=== PATIENT | male | born 1950 | race Caucasian/White ===

== ENCOUNTER 2019-10-30 17:51 | Inpatient (IN) | payer BC, MEDICARE, OTHER ==
[~2019-10-30] VITALS: Ht 170.2 cm; Wt 56.5 kg
[2019-10-30 18:39] LABS: Hemoglobin 15.6 g/dL (13.5-17.5); Mean Corpuscular Hemoglobin 33.4 pg (28.0-32.0); Mean Corpuscular Hgb Conc. 33.9 g/dL (32.0-36.0); Mean Corpuscular Volume 98.3 fL (80.0-100.0); Platelet Count (auto) 425 10^3/uL (140-450); Red Blood Cells 4.68 10^6/uL (4.5-5.90); Red Cell Distribution Width 13.4 % (11.8-14.3); White Blood Cell 7.2 10^3/uL (4.4-10.8)
[2019-10-30 18:46] LABS: Basophils % (manual) 0 (0.0-2.0); Blast Cells 0; Eosinophils % (manual) 0 (0-7); Metamyelocytes % 0; Myelocytes % 0; Promyelocytes % 0; Reactive Lymphocytes 0
[2019-10-30 18:54] LABS: INR 1.13 (0.9-1.15); Partial Thromboplastin Time 25.7 sec (23.0-31.2)
[2019-10-30 18:56] LABS: Alanine Aminotransferase 12 U/L (16-61); Albumin 2.9 g/dL (3.4-5.0); Amylase 16 U/L (25-115); Anion Gap 13 (5-15); Aspartate Aminotransferase 18 U/L (15-37); Blood Urea Nitrogen 39 mg/dL (7-18); Calcium 9.3 mg/dL (8.5-10.1); Carbon Dioxide 26 mmol/L (21-32); Chloride 91 mmol/L (98-107); GFR African American 46 mL/min; GFR Non-African American 38 mL/min; Glucose 146 mg/dL (74-106); Lipase 29 U/L (73-393); Magnesium 1.9 mg/dL (1.6-2.6); Potassium 3.2 mmol/L (3.5-5.1); Sodium 130 mmol/L (136-145)
[2019-10-30] MEDS ORDERED: PANTOPRAZOLE 40 MG/10 ML VIAL INJ IV STA (19:00)
[2019-10-30] MEDS ORDERED: HYDROmorphone HCL 2 MG/ML VL IV ONE (19:00)
[2019-10-30] MEDS ORDERED: metroNIDAZOLE 500MG/100ML 100 ML IV ONE (19:00)
[2019-10-30] MEDS ORDERED: cefTRIAXone 1GM/50ML D5W 50 ML IV ONE (19:00)
[2019-10-30] MEDS ORDERED: SODIUM CHLORIDE 0.9% 1,000 ML IVB ONE (19:00)
[2019-10-30] MEDS ORDERED: SODIUM CHLORIDE 0.9% 1,000 ML IV ONE (19:00)
[2019-10-30] MEDS ORDERED: PROMETHAZINE HCL 25 MG/ML 1ML IV PRN (19:00)
[2019-10-30 19:01] LABS: Alkaline Phosphatase 79 U/L (45-117); Bilirubin, Total 0.9 mg/dL (0.2-1.0); Lactic Acid w/Reflex 8.1 mmol/L (0.4-2.0); Total Protein 6.8 g/dL (6.4-8.2)
[2019-10-30] MEDS ORDERED: IOHEXOL 300 MG/ML 100ML BOTTLE IJ ONE (19:19)
[2019-10-30 20:08] LABS: Band Neutrophils % (manual) 43; Lymphocytes % (manual) 3 (10.0-50.0); Monocytes % (manual) 6 (0-12)
[2019-10-30] MEDS ORDERED: NITROGLYCERIN 0.4 MG SL TAB SL PRN (21:30)
[2019-10-30] MEDS ORDERED: MORPHINE SULFATE 4 MG/ML SYR/VIAL IV PRN (21:30)
[2019-10-30] MEDS ORDERED: SODIUM CHLORIDE 0.9% 1,000 ML IV SCH (21:30)
[2019-10-30] MEDS ORDERED: ONDANSETRON HCL 4 MG/2 ML VIAL IV PRN (21:30)
[2019-10-30] MEDS ORDERED: POTASSIUM CHL 20MEQ/100ML 100 ML IV ONE (21:30)
[2019-10-30] MEDS ORDERED: D5W/SOD CHL 0.45%/KCL 40MEQ 1,000 ML IV ONE (22:00)
[2019-10-30] MEDS ORDERED: ALBUMIN 5% 250 ML IV ONE (22:15)
[2019-10-30 22:18] LABS: Urine Bacteria FEW /hpf (None Seen); Urine Blood Negative /uL (Negative); Urine Hyaline Cast FEW /lpf (0 - 2); Urine Mucus FEW (None Seen); Urine Specific Gravity 1.025 (1.001-1.035); Urine WBC 3 /hpf (0 - 3)
[2019-10-31] VITALS (38 sets, daily range): BP systolic 87–211; BP diastolic 47–188
[2019-10-31] MEDS: metroNIDAZOLE 500MG/100ML 100 ML IV SCH ×4 (00:29→22:51)
[2019-10-31] MEDS: PIPERACILLIN-TAZOB 3.375GM 100 ML IV SCH ×3 (02:06→18:00)
[2019-10-31] MEDS ORDERED: POVIDONE IODINE 10 % TOPICAL OINT 30GM TOP ONE (08:12)
[2019-10-31] MEDS ORDERED: HYDROmorphone HCL 2 MG/ML VL ONE ×2 (08:51→10:09)
[2019-10-31] MEDS ORDERED: fentaNYL CITRATE 5 ML ONE ×2 (08:51→10:20)
[2019-10-31] MEDS ORDERED: fentaNYL CITRATE 100 MCG/2 ML VL ONE (08:51)
[2019-10-31] MEDS ORDERED: MIDAZOLAM HCL 1MG/1ML-2 ML VIAL ONE ×3 (08:52→10:49)
[2019-10-31] MEDS ORDERED: SUCCINYLCHOLINE CHLORIDE 20 MG/ML 10ML VIAL IV ONE (08:56)
[2019-10-31] MEDS ORDERED: ETOMIDATE (2MG/ML) 20ML VIAL IV ONE (08:58)
[2019-10-31] MEDS ORDERED: PHENYLEPHRINE HCL 10 MG/ML VL IV ONE (08:58)
[2019-10-31] MEDS ORDERED: PANTOPRAZOLE 40 MG/10 ML VIAL INJ IV SCH (10:00)
[2019-10-31] MEDS ORDERED: CALCIUM CHLOR(10%) 100MG/ML 10ML SYRINGE IV ONE (10:44)
[2019-10-31] MEDS ORDERED: ONDANSETRON HCL 4 MG/2 ML VIAL IV PRN (11:30)
[2019-10-31] MEDS ORDERED: MIDAZOLAM HCL 1MG/1ML-2 ML VIAL IV PRN (11:30)
[2019-10-31] MEDS ORDERED: HYDROmorphone HCL 2 MG/ML VL IV PRN ×2 (11:30→12:45)
[2019-10-31] MEDS ORDERED: POTASSIUM CHL 20MEQ/100ML 0 ML IV ONE (11:30)
[2019-10-31] MEDS ORDERED: LABETALOL HCL 5 MG/ML 4ML SYRINGE IV PRN (11:30)
[2019-10-31] MEDS ORDERED: ePHEDrine SULFATE 50 MG/ML AMP IV PRN (11:30)
[2019-10-31] MEDS ORDERED: MORPHINE SULFATE 4 MG/ML SYR/VIAL IV PRN (11:30)
[2019-10-31] MEDS ORDERED: ROCURONIUM 10MG/ML 10ML VIAL IV ONE (12:10)
[2019-10-31] MEDS ORDERED: NOREPINEPHRINE 8 MG/250ML KIT 250 ML IV ONE (12:24)
[2019-10-31] MEDS ORDERED: ALBUMIN 25% 50 ML IV ONE ×2 (12:45→12:48)
[2019-10-31] MEDS ORDERED: MIDAZOLAM DRIP 50 mg/50mL 50 ML IV ONE (12:49)
[2019-10-31] MEDS: NOREPINEPHRINE 8 MG/250ML KIT 250 ML IV SCH (13:54)
[2019-10-31] MEDS ORDERED: MIDAZOLAM DRIP 50 mg/50mL 50 ML IV SCH (13:54)
[2019-10-31] MEDS ORDERED: POTASSIUM CHL 20MEQ/100ML 100 ML IV ONE (14:00)
[2019-10-31] MEDS ORDERED: SODIUM BICARBONATE 8.4 % INJ 50ML VIAL IV ONE (15:00)
[2019-10-31 15:50] LABS: Hematocrit 42.1 % (41.0-53.0); Hemoglobin 14.1 g/dL (13.5-17.5); Mean Corpuscular Hemoglobin 33.5 pg (28.0-32.0); Mean Corpuscular Hgb Conc. 33.6 g/dL (32.0-36.0); Mean Corpuscular Volume 99.5 fL (80.0-100.0); Platelet Count (auto) 303 10^3/uL (140-450); Red Blood Cells 4.23 10^6/uL (4.5-5.90); Red Cell Distribution Width 13.9 % (11.8-14.3); White Blood Cell 8.8 10^3/uL (4.4-10.8)
[2019-10-31 15:55] LABS: Basophils % (manual) 0 (0.0-2.0); Blast Cells 0; Eosinophils % (manual) 0 (0-7); Promyelocytes % 0; Reactive Lymphocytes 0
[2019-10-31 16:10] LABS: Albumin 2.1 g/dL (3.4-5.0); Calcium 7.7 mg/dL (8.5-10.1); Magnesium 1.8 mg/dL (1.6-2.6); Phosphorus 2.6 mg/dL (2.5-4.90); Potassium 3.9 mmol/L (3.5-5.1)
[2019-10-31 16:11] LABS: Band Neutrophils % (manual) 37; Lymphocytes % (manual) 6 (10.0-50.0); Metamyelocytes % 5; Monocytes % (manual) 10 (0-12); Myelocytes % 2
[2019-10-31 16:14] LABS: BUN/Creatinine Ratio 36.4; Bilirubin, Total 0.4 mg/dL (0.2-1.0); Total Protein 4.1 g/dL (6.4-8.2)
[2019-10-31] MEDS: D5W/SOD CHLO 0.9% 1,000 ML IV SCH ×2 (17:03→23:00)
[2019-10-31] MEDS: IPRATROPIUM BROM 0.5 MG/2.5ML INH SOL NEB SCH (18:09)
[2019-10-31] MEDS: ACETYLCYSTEINE 10 %(100MG/ML) SOL 4ML NEB SCH (18:09)
[2019-10-31] MEDS: ALBUTEROL SULF 2.5 MG/0.5ML(0.5%) NEB SOLN NEB SCH (18:09)
[2019-10-31] MEDS: fentaNYL Drip 2500mCg/250mlNS 250 ML IV SCH (20:00)
[2019-11-01] VITALS (68 sets, daily range): BP systolic 70–175; BP diastolic 46–170
[2019-11-01] MEDS: IPRATROPIUM BROM 0.5 MG/2.5ML INH SOL NEB SCH ×4 (00:14→18:08)
[2019-11-01] MEDS: ALBUTEROL SULF 2.5 MG/0.5ML(0.5%) NEB SOLN NEB SCH ×4 (00:14→18:07)
[2019-11-01] MEDS: ACETYLCYSTEINE 10 %(100MG/ML) SOL 4ML NEB SCH ×4 (00:14→18:07)
[2019-11-01] MEDS: PIPERACILLIN-TAZOB 3.375GM 100 ML IV SCH ×4 (00:25→18:00)
[2019-11-01 04:42] LABS: Hematocrit 47.9 % (41.0-53.0); Hemoglobin 15.4 g/dL (13.5-17.5); Mean Corpuscular Hemoglobin 32.6 pg (28.0-32.0); Mean Corpuscular Hgb Conc. 32.1 g/dL (32.0-36.0); Mean Corpuscular Volume 101.5 fL (80.0-100.0); Platelet Count (auto) 275 10^3/uL (140-450); Red Blood Cells 4.71 10^6/uL (4.5-5.90); Red Cell Distribution Width 14.2 % (11.8-14.3); White Blood Cell 19.7 10^3/uL (4.4-10.8)
[2019-11-01] MEDS: MORPHINE SULF INJ 2 MG/ML SYRINGE 1ML IV PRN ×2 (04:59→21:19)
[2019-11-01 05:03] LABS: Potassium 4.4 mmol/L (3.5-5.1)
[2019-11-01] MEDS: D5W/SOD CHLO 0.9% 1,000 ML IV SCH (05:04)
[2019-11-01 05:12] LABS: Albumin 1.8 g/dL (3.4-5.0); BUN/Creatinine Ratio 30.6; Bilirubin, Total 0.5 mg/dL (0.2-1.0); Calcium 7.4 mg/dL (8.5-10.1); Total Protein 4.4 g/dL (6.4-8.2)
[2019-11-01 05:15] LABS: Basophils % (manual) 0 (0.0-2.0); Blast Cells 0; Eosinophils % (manual) 0 (0-7); Promyelocytes % 0; Reactive Lymphocytes 0
[2019-11-01] MEDS: metroNIDAZOLE 500MG/100ML 100 ML IV SCH ×3 (06:00→22:09)
[2019-11-01 06:19] LABS: Lymphocytes % (manual) 2 (10.0-50.0)
[2019-11-01 06:21] LABS: Band Neutrophils % (manual) 73; Metamyelocytes % 2; Monocytes % (manual) 5 (0-12); Myelocytes % 1
[2019-11-01] MEDS: PANTOPRAZOLE 40 MG/10 ML VIAL INJ IV SCH (10:47)
[2019-11-01] MEDS: fentaNYL Drip 2500mCg/250mlNS 250 ML IV SCH (13:46)
[2019-11-01] MEDS: NOREPINEPHRINE 8 MG/250ML KIT 250 ML IV SCH (13:54)
[2019-11-01] MEDS ORDERED: LORazepam 2MG/ML-1ML VIAL ONE (18:39)
[2019-11-01] MEDS ORDERED: LORazepam 2MG/ML-1ML VIAL IV ONE (18:45)
[2019-11-02] VITALS (24 sets, daily range): BP systolic 111–168; BP diastolic 60–117
[2019-11-02] MEDS: IPRATROPIUM BROM 0.5 MG/2.5ML INH SOL NEB SCH ×6 (00:10→21:53)
[2019-11-02] MEDS: ACETYLCYSTEINE 10 %(100MG/ML) SOL 4ML NEB SCH ×6 (00:10→21:53)
[2019-11-02] MEDS: ALBUTEROL SULF 2.5 MG/0.5ML(0.5%) NEB SOLN NEB SCH ×2 (00:10→06:16)
[2019-11-02] MEDS: PIPERACILLIN-TAZOB 3.375GM 100 ML IV SCH ×3 (01:02→11:59)
[2019-11-02] MEDS: D5W/SOD CHLO 0.9% 1,000 ML IV SCH (03:30)
[2019-11-02] MEDS: MORPHINE SULF INJ 2 MG/ML SYRINGE 1ML IV PRN ×3 (04:43→21:10)
[2019-11-02 04:57] LABS: Basophils # (auto) 0 10 ^3/uL (0-0.2); Eosinophils # (auto) 0 10 ^3/uL (0-0.8); Hematocrit 27.4 % (41.0-53.0); Hemoglobin 9.3 g/dL (13.5-17.5); Lymphocytes # (auto) 0.2 10 ^3/uL (0.4-5.4); Mean Corpuscular Hemoglobin 33.4 pg (28.0-32.0); Mean Corpuscular Hgb Conc. 33.8 g/dL (32.0-36.0); Mean Corpuscular Volume 98.8 fL (80.0-100.0); Monocytes # (auto) 0.5 10 ^3/uL (0-1.3); Monocytes % (auto) 2.9 % (0.0-12.0); Neutrophils # (auto) 15.8 10 ^3/uL (1.6-8.6); Neutrophils % (auto) 96.1 % (37.0-80.0); Platelet Count (auto) 156 10^3/uL (140-450); Red Blood Cells 2.78 10^6/uL (4.5-5.90); Red Cell Distribution Width 14.5 % (11.8-14.3); White Blood Cell 16.5 10^3/uL (4.4-10.8)
[2019-11-02] MEDS: metroNIDAZOLE 500MG/100ML 100 ML IV SCH ×3 (05:18→22:00)
[2019-11-02 05:23] LABS: Albumin 1.5 g/dL (3.4-5.0); BUN/Creatinine Ratio 34.3; Bilirubin, Total 0.3 mg/dL (0.2-1.0); Calcium 6.8 mg/dL (8.5-10.1); Total Protein 3.7 g/dL (6.4-8.2)
[2019-11-02 05:25] LABS: Potassium 2.7 mmol/L (3.5-5.1)
[2019-11-02] MEDS ORDERED: POTASSIUM CHL 20MEQ/100ML 100 ML IV ONE ×2 (06:30→09:00)
[2019-11-02] MEDS: PANTOPRAZOLE 40 MG/10 ML VIAL INJ IV SCH (09:32)
[2019-11-02 10:35] LABS: Phosphorus 0.6 mg/dL (2.5-4.90)
[2019-11-02] MEDS ORDERED: POTASSIUM PHOSPHATE 44 MEQ in D5W 5% 250 ML IV ONE ×2 (10:45→16:15)
[2019-11-02] MEDS: LORazepam 2MG/ML-1ML VIAL IV PRN ×2 (11:09→20:12)
[2019-11-02] MEDS ORDERED: LEVALBUTEROL HCL 1.25 MG/3 ML NEB NEB SCH (12:00)
[2019-11-02] MEDS ORDERED: FUROSEMIDE 40 MG/4 ML VIAL ONE (12:41)
[2019-11-02] MEDS ORDERED: FUROSEMIDE 40 MG/4 ML VIAL IV ONE (12:45)
[2019-11-02] MEDS ORDERED: IPRATROPIUM BROM 0.5 MG/2.5ML INH SOL NEB ONE (12:45)
[2019-11-02] MEDS ORDERED: BUDESONIDE (INHALATION) 0.5 MG/2 ML NEB NEB ONE (12:45)
[2019-11-02] MEDS ORDERED: TPN PER PHARMACY 0 ML IV SCH (13:00)
[2019-11-02] MEDS ORDERED: MORPHINE SULF INJ 2 MG/ML SYRINGE 1ML IV ONE (13:45)
[2019-11-02] MEDS ORDERED: methylPREDNISolone SOD SUCC 125 MG/2 ML VL ONE (14:00)
[2019-11-02] MEDS ORDERED: methylPREDNISolone SOD SUCC 125 MG/2 ML VL IV ONE (14:00)
[2019-11-02] MEDS: LEVALBUTEROL HCL 1.25 MG/3 ML NEB NEB SCH ×2 (14:18→21:53)
[2019-11-02 14:49] LABS: Pre Albumin 3.6 mg/dL (20.0-40.0)
[2019-11-02] MEDS ORDERED: FOLIC ACID 1 MG in D5W 5% 50 ML IV ONE (15:00)
[2019-11-02] MEDS ORDERED: LABETALOL HCL 5 MG/ML 4ML SYRINGE IV PRN ×2 (15:00)
[2019-11-02] MEDS ORDERED: THIAMINE 100mg/ml INJ (200mg/2ml VIAL) IV ONE (15:00)
[2019-11-02] MEDS ORDERED: cloNIDine 0.2 mg/24hr 7DAY PATCH TD SCH (15:00)
[2019-11-02 15:37] LABS: INR 1.18 (0.9-1.15)
[2019-11-02] MEDS: HALOPERIDOL LACTATE 5 MG/ML INJ VIAL IM PRN ×2 (15:58→23:28)
[2019-11-02 16:03] LABS: Phosphorus 1.1 mg/dL (2.5-4.90)
[2019-11-02 16:08] LABS: Potassium 2.7 mmol/L (3.5-5.1)
[2019-11-02] MEDS: BUDESONIDE (INHALATION) 0.5 MG/2 ML NEB NEB SCH (18:18)
[2019-11-02] MEDS ORDERED: PPN PER PHARMACY IV NR ×10 (20:00)
[2019-11-02] MEDS ORDERED: POTASSIUM PHOSPHATE 22 MEQ in SODIUM CHL 0.9% 100 ML IV ONE (22:00)
[2019-11-02] MEDS ORDERED: FUROSEMIDE 20 MG/2 ML VIAL IV ONE (23:30)
[2019-11-03] VITALS (13 sets, daily range): BP systolic 119–161; BP diastolic 69–108
[2019-11-03] MEDS: IPRATROPIUM BROM 0.5 MG/2.5ML INH SOL NEB SCH ×6 (02:11→22:21)
[2019-11-03] MEDS: ACETYLCYSTEINE 10 %(100MG/ML) SOL 4ML NEB SCH ×6 (02:11→22:21)
[2019-11-03] MEDS: HYDROmorphone HCL 2 MG/ML VL IV PRN ×2 (03:17→21:11)
[2019-11-03 05:19] LABS: Basophils # (auto) 0 10 ^3/uL (0-0.2); Basophils % (auto) 0.3 % (0.0-2.0); Eosinophils # (auto) 0 10 ^3/uL (0-0.8); Hematocrit 33.5 % (41.0-53.0); Hemoglobin 11.3 g/dL (13.5-17.5); Lymphocytes # (auto) 0.2 10 ^3/uL (0.4-5.4); Lymphocytes % (auto) 1.1 % (10.0-50.0); Mean Corpuscular Hemoglobin 33.3 pg (28.0-32.0); Mean Corpuscular Hgb Conc. 33.9 g/dL (32.0-36.0); Mean Corpuscular Volume 98.3 fL (80.0-100.0); Monocytes # (auto) 0.6 10 ^3/uL (0-1.3); Monocytes % (auto) 3.4 % (0.0-12.0); Neutrophils # (auto) 18.1 10 ^3/uL (1.6-8.6); Neutrophils % (auto) 95.2 % (37.0-80.0); Platelet Count (auto) 147 10^3/uL (140-450); Red Blood Cells 3.41 10^6/uL (4.5-5.90); Red Cell Distribution Width 14.3 % (11.8-14.3)
[2019-11-03 05:42] LABS: Albumin 2.2 g/dL (3.4-5.0); BUN/Creatinine Ratio 23.8; Bilirubin, Total 0.4 mg/dL (0.2-1.0); Calcium 7.4 mg/dL (8.5-10.1); Magnesium 1.9 mg/dL (1.6-2.6); Phosphorus 2.6 mg/dL (2.5-4.90); Total Protein 4.9 g/dL (6.4-8.2)
[2019-11-03 05:49] LABS: Potassium 2.7 mmol/L (3.5-5.1)
[2019-11-03] MEDS: ACCU-CHEK COMFORT CURVE STRIP VI SCH ×4 (06:00→18:02)
[2019-11-03] MEDS: metroNIDAZOLE 500MG/100ML 100 ML IV SCH ×3 (06:00→21:10)
[2019-11-03] MEDS: InsuLIN REG 1unit/0.01ml Soln (100units/ml) SC SCH ×4 (06:17→18:00)
[2019-11-03] MEDS: BUDESONIDE (INHALATION) 0.5 MG/2 ML NEB NEB SCH ×2 (06:38→18:22)
[2019-11-03] MEDS: LEVALBUTEROL HCL 1.25 MG/3 ML NEB NEB SCH ×4 (06:39→22:21)
[2019-11-03] MEDS: POTASSIUM CHL 20MEQ/100ML 100 ML IV SCH ×4 (06:59→11:58)
[2019-11-03] MEDS ORDERED: cefTRIAXone 1GM/50ML D5W 50 ML IV SCH (09:00)
[2019-11-03] MEDS: HALOPERIDOL LACTATE 5 MG/ML INJ VIAL IM PRN (09:06)
[2019-11-03] MEDS ORDERED: VANCOMYCIN PER PHARMACY 0 MG IV SCH (09:45)
[2019-11-03] MEDS: THIAMINE 100mg/ml INJ (200mg/2ml VIAL) IV SCH (10:00)
[2019-11-03] MEDS: FOLIC ACID 1 MG in D5W 5% 50 ML IV SCH (10:25)
[2019-11-03] MEDS: LORazepam 2MG/ML-1ML VIAL IV PRN (10:26)
[2019-11-03] MEDS ORDERED: chlordiazePOXIDE HCL 5 MG CAP PO PRN (10:30)
[2019-11-03] MEDS ORDERED: TPN PER PHARMACY 0 ML IV SCH (10:30)
[2019-11-03] MEDS: PANTOPRAZOLE 40 MG/10 ML VIAL INJ IV SCH (10:49)
[2019-11-03] MEDS: VANCOMYCIN 1GM/250ML 250 ML IV SCH (10:49)
[2019-11-03] MEDS: PIPERACILLIN-TAZOB 3.375GM 100 ML IV SCH ×2 (12:00→18:04)
[2019-11-03] MEDS ORDERED: LORazepam 2MG/ML-1ML VIAL IV ONE (12:15)
[2019-11-03] MEDS ORDERED: FLUCONAZOLE 200MG/100ML 100 ML IV ONE (13:00)
[2019-11-03] MEDS ORDERED: LIDOCAINE 1% (LOCAL ANESTH.) PF 5ml SDV ID ONE (14:30)
[2019-11-03] MEDS: NYSTATIN (MOUTH-THROAT) 500,000 UNITS/5 ML SUSP MT SCH ×2 (18:02→21:10)
[2019-11-03] MEDS ORDERED: PPN PER PHARMACY IV NR ×11 (20:00)
[2019-11-03] MEDS: SODIUM CHLOR 0.9% PF (SALINE LOCK) 10ML VIAL/SYR IV SCH (21:10)
[2019-11-03] MEDS ORDERED: FUROSEMIDE 20 MG/2 ML VIAL IV ONE (23:30)
[2019-11-04 00:07] VITALS: BP 142/64
[2019-11-04] MEDS: PIPERACILLIN-TAZOB 3.375GM 100 ML IV SCH ×5 (00:22→23:45)
[2019-11-04] MEDS: IPRATROPIUM BROM 0.5 MG/2.5ML INH SOL NEB SCH ×6 (02:39→22:53)
[2019-11-04] MEDS: ACETYLCYSTEINE 10 %(100MG/ML) SOL 4ML NEB SCH ×6 (02:39→22:53)
[2019-11-04] MEDS: LORazepam 2MG/ML-1ML VIAL IV PRN ×3 (02:42→20:10)
[2019-11-04] MEDS: VANCOMYCIN 1GM/250ML 250 ML IV SCH ×2 (02:43→19:00)
[2019-11-04 05:00] VITALS: BP 142/69
[2019-11-04] MEDS: metroNIDAZOLE 500MG/100ML 100 ML IV SCH ×3 (05:37→22:38)
[2019-11-04] MEDS: NYSTATIN (MOUTH-THROAT) 500,000 UNITS/5 ML SUSP MT SCH ×4 (05:38→22:39)
[2019-11-04] MEDS: ACCU-CHEK COMFORT CURVE STRIP VI SCH ×5 (05:38→23:46)
[2019-11-04] MEDS: InsuLIN REG 1unit/0.01ml Soln (100units/ml) SC SCH ×5 (05:41→23:46)
[2019-11-04] MEDS: HALOPERIDOL LACTATE 5 MG/ML INJ VIAL IM PRN (06:09)
[2019-11-04 07:03] LABS: Calcium 7.3 mg/dL (8.5-10.1); Magnesium 1.8 mg/dL (1.6-2.6); Potassium 3.6 mmol/L (3.5-5.1)
[2019-11-04 07:07] LABS: BUN/Creatinine Ratio 24.7; Bilirubin, Total 0.4 mg/dL (0.2-1.0); Phosphorus 1.9 mg/dL (2.5-4.90); Total Protein 4.9 g/dL (6.4-8.2)
[2019-11-04] MEDS: HYDROmorphone HCL 2 MG/ML VL IV PRN ×3 (07:29→23:32)
[2019-11-04 07:39] LABS: Basophils # (auto) 0 10 ^3/uL (0-0.2); Basophils % (auto) 0.2 % (0.0-2.0); Eosinophils # (auto) 0 10 ^3/uL (0-0.8); Eosinophils % (auto) 0.1 % (0.0-7.0); Hematocrit 37.8 % (41.0-53.0); Hemoglobin 12.9 g/dL (13.5-17.5); Lymphocytes # (auto) 0.4 10 ^3/uL (0.4-5.4); Mean Corpuscular Hemoglobin 33.8 pg (28.0-32.0); Mean Corpuscular Hgb Conc. 34.2 g/dL (32.0-36.0); Monocytes # (auto) 0.9 10 ^3/uL (0-1.3); Monocytes % (auto) 4.3 % (0.0-12.0); Neutrophils # (auto) 19.8 10 ^3/uL (1.6-8.6); Neutrophils % (auto) 93.4 % (37.0-80.0); Platelet Count (auto) 118 10^3/uL (140-450); Red Blood Cells 3.82 10^6/uL (4.5-5.90); Red Cell Distribution Width 14.4 % (11.8-14.3); White Blood Cell 21.2 10^3/uL (4.4-10.8)
[2019-11-04 09:00] VITALS: BP 114/40
[2019-11-04] MEDS: BUDESONIDE (INHALATION) 0.5 MG/2 ML NEB NEB SCH ×2 (10:37→18:59)
[2019-11-04] MEDS ORDERED: POTASSIUM PHOSP 26.4MEQ(18MMOL) IN NS 100 ML IV ONE (10:45)
[2019-11-04] MEDS: THIAMINE 100mg/ml INJ (200mg/2ml VIAL) IV SCH (11:32)
[2019-11-04] MEDS: FLUCONAZOLE 200MG/100ML 100 ML IV SCH (11:33)
[2019-11-04] MEDS: PANTOPRAZOLE 40 MG/10 ML VIAL INJ IV SCH (11:33)
[2019-11-04] MEDS: FUROSEMIDE 20 MG/2 ML VIAL IV SCH (11:33)
[2019-11-04] MEDS: SODIUM CHLOR 0.9% PF (SALINE LOCK) 10ML VIAL/SYR IV SCH ×2 (11:34→21:05)
[2019-11-04] MEDS: FOLIC ACID 1 MG in D5W 5% 50 ML IV SCH (12:19)
[2019-11-04 13:00] VITALS: BP 143/70
[2019-11-04] MEDS: LEVALBUTEROL HCL 1.25 MG/3 ML NEB NEB SCH ×2 (14:26→22:53)
[2019-11-04 17:00] VITALS: BP 92/58
[2019-11-04] MEDS ORDERED: TPN PER PHARMACY IV NR ×10 (20:00)
[2019-11-04 22:00] VITALS: BP 134/86
[2019-11-05] VITALS (9 sets, daily range): BP systolic 86–138; BP diastolic 41–76
[2019-11-05] MEDS: ACETYLCYSTEINE 10 %(100MG/ML) SOL 4ML NEB SCH ×6 (02:03→22:53)
[2019-11-05] MEDS: IPRATROPIUM BROM 0.5 MG/2.5ML INH SOL NEB SCH ×6 (02:03→22:53)
[2019-11-05] MEDS: HYDROmorphone HCL 2 MG/ML VL IV PRN ×5 (04:15→21:48)
[2019-11-05] MEDS: metroNIDAZOLE 500MG/100ML 100 ML IV SCH ×3 (05:02→21:47)
[2019-11-05] MEDS: InsuLIN REG 1unit/0.01ml Soln (100units/ml) SC SCH ×3 (06:00→17:38)
[2019-11-05] MEDS: ACCU-CHEK COMFORT CURVE STRIP VI SCH ×3 (06:02→17:39)
[2019-11-05] MEDS: NYSTATIN (MOUTH-THROAT) 500,000 UNITS/5 ML SUSP MT SCH ×4 (06:31→21:48)
[2019-11-05] MEDS: PIPERACILLIN-TAZOB 3.375GM 100 ML IV SCH ×3 (06:31→18:33)
[2019-11-05] MEDS: LORazepam 2MG/ML-1ML VIAL IV PRN ×3 (06:32→17:38)
[2019-11-05] MEDS: LEVALBUTEROL HCL 1.25 MG/3 ML NEB NEB SCH ×3 (06:37→22:54)
[2019-11-05 07:21] LABS: Basophils # (auto) 0 10 ^3/uL (0-0.2); Basophils % (auto) 0.1 % (0.0-2.0); Eosinophils # (auto) 0.1 10 ^3/uL (0-0.8); Eosinophils % (auto) 0.8 % (0.0-7.0); Hematocrit 37.3 % (41.0-53.0); Hemoglobin 12.1 g/dL (13.5-17.5); Lymphocytes # (auto) 0.7 10 ^3/uL (0.4-5.4); Lymphocytes % (auto) 4.4 % (10.0-50.0); Mean Corpuscular Hemoglobin 32.2 pg (28.0-32.0); Mean Corpuscular Hgb Conc. 32.5 g/dL (32.0-36.0); Mean Corpuscular Volume 99.1 fL (80.0-100.0); Monocytes # (auto) 0.9 10 ^3/uL (0-1.3); Monocytes % (auto) 5.2 % (0.0-12.0); Neutrophils # (auto) 14.8 10 ^3/uL (1.6-8.6); Neutrophils % (auto) 89.5 % (37.0-80.0); Platelet Count (auto) 101 10^3/uL (140-450); Red Blood Cells 3.77 10^6/uL (4.5-5.90); Red Cell Distribution Width 14.3 % (11.8-14.3); White Blood Cell 16.6 10^3/uL (4.4-10.8)
[2019-11-05 07:39] LABS: Albumin 1.7 g/dL (3.4-5.0); Calcium 7.4 mg/dL (8.5-10.1); Magnesium 2.3 mg/dL (1.6-2.6); Potassium 3.8 mmol/L (3.5-5.1)
[2019-11-05 07:42] LABS: BUN/Creatinine Ratio 30.8; Bilirubin, Total 0.5 mg/dL (0.2-1.0); Phosphorus 2.7 mg/dL (2.5-4.90); Total Protein 4.6 g/dL (6.4-8.2)
[2019-11-05] MEDS: FLUCONAZOLE 200MG/100ML 100 ML IV SCH (09:29)
[2019-11-05] MEDS: THIAMINE 100mg/ml INJ (200mg/2ml VIAL) IV SCH (09:29)
[2019-11-05] MEDS: SODIUM CHLOR 0.9% PF (SALINE LOCK) 10ML VIAL/SYR IV SCH ×2 (09:30→20:28)
[2019-11-05] MEDS: PANTOPRAZOLE 40 MG/10 ML VIAL INJ IV SCH (09:30)
[2019-11-05] MEDS: BUDESONIDE (INHALATION) 0.5 MG/2 ML NEB NEB SCH ×2 (10:24→22:53)
[2019-11-05] MEDS: FOLIC ACID 1 MG in D5W 5% 50 ML IV SCH (11:33)
[2019-11-05] MEDS ORDERED: OMNIPAQUE ORAL SOLN 500ml 12mg/ml PO ONE (11:36)
[2019-11-05] MEDS: FUROSEMIDE 20 MG/2 ML VIAL IV SCH (11:43)
[2019-11-05] MEDS ORDERED: IOHEXOL 300 MG/ML 100ML BOTTLE IJ ONE (16:19)
[2019-11-05] MEDS ORDERED: VANCOMYCIN 1GM/250ML 250 ML IV SCH (17:00)
[2019-11-05] MEDS ORDERED: TPN PER PHARMACY IV NR ×11 (20:00)
[2019-11-05] MEDS ORDERED: NOREPINEPHRINE 8 MG/250ML KIT 250 ML IV ONE (23:12)
[2019-11-05] MEDS ORDERED: NOREPINEPHRINE 8 MG/250ML KIT 250 ML IV SCH (23:30)
[2019-11-06] VITALS (32 sets, daily range): BP systolic 80–125; BP diastolic 43–72
[2019-11-06] MEDS: HYDROmorphone HCL 2 MG/ML VL IV PRN (02:05)
[2019-11-06] MEDS: IPRATROPIUM BROM 0.5 MG/2.5ML INH SOL NEB SCH ×2 (02:10→07:06)
[2019-11-06] MEDS: ACETYLCYSTEINE 10 %(100MG/ML) SOL 4ML NEB SCH ×2 (02:10→07:06)
[2019-11-06] MEDS ORDERED: VANCOMYCIN 1GM/250ML 250 ML IV SCH (04:00)
[2019-11-06 04:15] LABS: Basophils # (auto) 0.1 10 ^3/uL (0-0.2); Basophils % (auto) 0.5 % (0.0-2.0); Eosinophils # (auto) 0.1 10 ^3/uL (0-0.8); Eosinophils % (auto) 0.7 % (0.0-7.0); Hematocrit 35.8 % (41.0-53.0); Hemoglobin 11.1 g/dL (13.5-17.5); Lymphocytes # (auto) 0.7 10 ^3/uL (0.4-5.4); Lymphocytes % (auto) 3.9 % (10.0-50.0); Mean Corpuscular Hemoglobin 33.6 pg (28.0-32.0); Mean Corpuscular Volume 108.2 fL (80.0-100.0); Monocytes # (auto) 0.9 10 ^3/uL (0-1.3); Monocytes % (auto) 4.7 % (0.0-12.0); Neutrophils # (auto) 16.5 10 ^3/uL (1.6-8.6); Neutrophils % (auto) 90.2 % (37.0-80.0); Platelet Count (auto) 153 10^3/uL (140-450); Red Blood Cells 3.31 10^6/uL (4.5-5.90); Red Cell Distribution Width 16.2 % (11.8-14.3); White Blood Cell 18.3 10^3/uL (4.4-10.8)
[2019-11-06] MEDS ORDERED: metroNIDAZOLE 500MG/100ML 100 ML IV SCH (05:00)
[2019-11-06] MEDS: ACCU-CHEK COMFORT CURVE STRIP VI SCH ×2 (06:00)
[2019-11-06] MEDS: InsuLIN REG 1unit/0.01ml Soln (100units/ml) SC SCH ×2 (06:00)
[2019-11-06] MEDS: NYSTATIN (MOUTH-THROAT) 500,000 UNITS/5 ML SUSP MT SCH (06:00)
[2019-11-06] MEDS: PIPERACILLIN-TAZOB 3.375GM 100 ML IV SCH ×2 (06:03)
[2019-11-06] MEDS: DEXTROSE (50%) 50ML SYRG IV SCH ×2 (06:09→07:05)
[2019-11-06] MEDS: LEVALBUTEROL HCL 1.25 MG/3 ML NEB NEB SCH (07:06)
[2019-11-06 07:47] LABS: Potassium 4.5 mmol/L (3.5-5.1)
[2019-11-06 07:48] LABS: BUN/Creatinine Ratio 23.7
[2019-11-06 07:49] LABS: Calcium 7.3 mg/dL (8.5-10.1)
[2019-11-06 07:50] LABS: Albumin 1.6 g/dL (3.4-5.0); Bilirubin, Total 0.3 mg/dL (0.2-1.0); Magnesium 2.5 mg/dL (1.6-2.6); Phosphorus 4.9 mg/dL (2.5-4.90); Total Protein 4.9 g/dL (6.4-8.2)
== END 2019-11-06 08:00 | disposition expired | DRG 853 ==
LOC: ER 17:51 → EDBD 17:51 → TELE 17:52 → TELE-EAST 10-31 06:24 → ICU WEST 10-31 15:38 → DOU IN ICU 11-03 05:50 → TELE-WESTW 11-03 23:25 → ICU WEST 11-05 22:52
PROVIDERS: ADMIT Nurse Practitioner; ATTEND Internal Medicine
PROC: 0DBL0ZZ Excision of Transverse Colon, Open Approach (ICD-10-PCS; 2019-10-31)
PROC: 5A1945Z Respiratory Ventilation, 24-96 Consecutive Hours (ICD-10-PCS; 2019-10-31)
PROC: 0BH17EZ Insertion of Endotracheal Airway into Trachea, Via Natural or Artificial Opening (ICD-10-PCS; 2019-10-31)
PROC: 0DTF0ZZ Resection of Right Large Intestine, Open Approach (ICD-10-PCS; principal; 2019-10-31 09:07)
PROC: 3E0436Z Introduction of Nutritional Substance into Central Vein, Percutaneous Approach (ICD-10-PCS; 2019-11-02)
PROC: 5A09357 Assistance with Respiratory Ventilation, Less than 24 Consecutive Hours, Continuous Positive Airway Pressure (ICD-10-PCS; 2019-11-04)
DX: A41.9 Sepsis, unspecified organism (principal); K65.8 Other peritonitis; K63.1 Perforation of intestine (nontraumatic); J15.0 Pneumonia due to Klebsiella pneumoniae; N17.0 Acute kidney failure with tubular necrosis; R65.21 Severe sepsis with septic shock; G93.41 Metabolic encephalopathy; K65.1 Peritoneal abscess; J96.00 Acute respiratory failure, unspecified whether with hypoxia or hypercapnia; E44.0 Moderate protein-calorie malnutrition; K55.9 Vascular disorder of intestine, unspecified; Z99.11 Dependence on respirator [ventilator] status; Z68.1 Body mass index [BMI] 19.9 or less, adult; E11.21 Type 2 diabetes mellitus with diabetic nephropathy; E87.6 Hypokalemia; D69.6 Thrombocytopenia, unspecified; F10.20 Alcohol dependence, uncomplicated; J44.9 Chronic obstructive pulmonary disease, unspecified; B96.1 Klebsiella pneumoniae [K. pneumoniae] as the cause of diseases classified elsewhere; K66.0 Peritoneal adhesions (postprocedural) (postinfection); Z20.828 Contact with and (suspected) exposure to other viral communicable diseases; Y90.9 Presence of alcohol in blood, level not specified; E03.9 Hypothyroidism, unspecified; Z86.74 Personal history of sudden cardiac arrest; Z79.899 Other long term (current) drug therapy; Z66 Do not resuscitate
CPT/HCPCS: 36415; 36569; 36600; 70450; 71045; 74176; 74177; 80053; 80202; 81001; 82040; 82150; 82805; 82962; 83605; 83690; 83735; 84100; 84132; 84478; 84484; 85007; 85025; 85027; 85610; 85730; 86850; 86900; 86901; 87070; 87075; 87077; 87081; 87186; 87205; 87426; 93005; 94002; 94003; 94640; 94660; 99291; C9113; G0378; J0330; J0696; J1450; J1815; J2250; J2543; J3480; J3490; J7042; J7060